=== PATIENT | male | born 1955 | race Two or more races ===

== ENCOUNTER 2020-05-09 19:40 | Emergency (ER) | payer OTHER ==
[~2020-05-09] VITALS: Ht 175.3 cm; Wt 81.6 kg
[~2020-05-09 19:40] MED LIST: CATAFLAM50 MG PO; CIPRO500 MG PO; GILTUSS TR TAB1 EACH PO; INTESTINEX1 CAP PO; PRILOSEC OTC20 MG PO; PROSCAR5 MG; PROSCAR5 MG PO; TAMS0.4C PO; TESSALON200 MG PO; TOBREX5 ML OP; TUSNEL LIQUID178 ML PO; ZANTAC300 MG PO; ZITHROMAX TRI-500 MG PO; ZITHROMAX500 MG PO; ZYRTEC10 MG PO
[2020-05-09] MEDS ORDERED: COZAAR25 MG (20:07)
== END 2020-05-09 22:24 | disposition home or self-care (01) ==
LOC: ER 19:40
DX: I16.0 Hypertensive urgency (principal); I10 Essential (primary) hypertension

== ENCOUNTER 2021-01-18 15:00 | Outpatient (CLI) | payer OTHER ==
[~2021-01-18 15:00] MED LIST changes: +COZAAR25 MG
== END 2021-01-18 15:01 | disposition home or self-care (01) ==
LOC: PPH VACUNA 15:00
PROVIDERS: ATTEND Emergency Medicine Pediatric Emergency Medicine
DX: Z23 Encounter for immunization (principal)

== ENCOUNTER 2021-02-08 14:17 | Outpatient (CLI) | payer OTHER | END 2021-02-08 14:22 | disposition home or self-care (01) | LOC: PPH VACUNA 14:17 | PROVIDERS: ATTEND Emergency Medicine Pediatric Emergency Medicine | DX: Z23 Encounter for immunization (principal) ==

== ENCOUNTER → 2021-04-09 | Outpatient (CLI) | payer OTHER | END | disposition home or self-care (01) | LOC: RAD 10:37 | PROVIDERS: ATTEND Specialist | DX: J45.998 Other asthma (principal) ==